=== PATIENT | female | born 1990 | race American Indian/Alaskan Native ===

== ENCOUNTER 2017-07-17 20:41 | Emergency (ER) | payer SELFPAY ==
[2017-07-17 21:47] LABS: Bacteria,Urine 4+ /HPF (Negative); Bilirubin,Urine NEG (Negative); Blood,Urine LG (Negative); Color,Urine Yellow (Yellow); Urobilinogen,Urine < 2.0 mg/dL (<2.0)
[2017-07-17 21:49] LABS: HCG Qualitative,Urine Negative (Negative)
[2017-07-17 21:50] LABS: RBC,Urine > 182.0 /HPF (0.0-6.0)
--- NOTE | 2017-07-17 21:59 | Emergency Department Report ---
HPI - General Chief Complaint: Abdominal Pain Time Seen by Provider: 07/17/17 21:53 - HPI HPI: Patient is a 26-year-old female with no prior medical history who presents to ED complaining of having her period twice this month. Patient states she had her regular period at the beginning of the month and about 4 days ago she started a new menstrual cycle. Patient states bleeding is mild to moderate sometimes having periods. She admits that she gets some intermittent cramps along with the cycle nothing too severe. She denies fever or chills/ nausea or vomiting/headache/fatigue/dizziness as chest pain shortness of breath or any other problems. ED Past Medical Hx - Past Medical History Hx Hypertension: No Hx Heart Attack/AMI: No Hx Congestive Heart Failure: No Hx Diabetes: No Hx Liver Disease: No Hx Renal Disease: No Hx Sickle Cell Disease: No Hx Seizures: No Hx Asthma: Yes (as a child) Hx COPD: No Hx Tuberculosis: No - Surgical History Additional Surgical History: C/S x2 - Social History Smoking Status: Current Every Day Smoker - Medications Home Medications: Home Medications Medication Instructions Recorded Confirmed Last Taken Type HYDROcodone/APAP 5-325 [[place] 1 each PO Q6H PRN #30 tablet 03/01/13 Unknown Rx 5-325 mg TAB] Ibuprofen [Motrin] 800 mg PO Q8HR PRN #30 tablet 07/17/17 Unknown Rx Sulfamethoxazole/Trimethoprim 1 each PO BID #14 tablet 07/17/17 Unknown Rx [Bactrim DS TAB] ED Review of Systems ROS: Stated complaint: LOWER BOTTOM Other details as noted in HPI Constitutional: denies: chills, fever Eyes: denies: eye pain, eye discharge, vision change ENT: denies: ear pain, throat pain Respiratory: denies: cough, shortness of breath, wheezing Cardiovascular: denies: chest pain, palpitations Endocrine: no symptoms reported Gastrointestinal: denies: abdominal pain, nausea, diarrhea Genitourinary: abnormal menses. denies: urgency, dysuria, frequency, hematuria , discharge Musculoskeletal: denies: back pain, joint swelling, arthralgia Skin: denies: rash, lesions Neurological: denies: headache, weakness, paresthesias Psychiatric: denies: anxiety, depression Hematological/Lymphatic: denies: easy bleeding, easy bruising Physical Exam - Physical Exam Vital Signs: Vital Signs 07/17/17 20:47 Temperature 98.6 F Pulse Rate 105 H Respiratory 20 Rate Blood Pressure 156/90 O2 Sat by Pulse 100 Oximetry Physical Exam: GENERAL: Alert and oriented x3, no apparent distress, Normal Gait, atraumatic. HEAD: Head is normocephalic and a-traumatic. LUNGS: Symetrical with respiration, No wheezing, no rales or crackles, CTAB. HEART: S1, S2 present, regular rate and rhythm without murmur, no rubs, no gallops. Non tender to palpation ABDOMEN: No organomegaly was noted,Positive bowel sounds, soft, and non- distended. . Nontender to palpation on all Quadrants, NO CVA tenderness. BACK: Full range of motion, no spinal tenderness, nontender to palpation. NEUROLOGIC: The patient is cooperative with no focal neurologic deficits. SKIN: Warm and dry, small erythematous generalized lesions consistent with insect bites on arms and lower legs, No ulceration or induration present. ED Course Vital Signs 07/17/17 20:47 Temperature 98.6 F Pulse Rate 105 H Respiratory 20 Rate Blood Pressure 156/90 O2 Sat by Pulse 100 Oximetry ED Medical Decision Making - Lab Data Laboratory Last Values Urine Color Yellow (Yellow) 07/17/17 Unknown Urine Turbidity Clear (Clear) 07/17/17 Unknown Urine pH 6.0 (5.0-7.0) 07/17/17 Unknown Ur Specific [place] 1.035 (1.003-1.030) H 07/17/17 Unknown Urine Protein 100 mg/dl mg/dL (Negative) 07/17/17 Unknown Urine Glucose (UA) 50 mg/dL (Negative) 07/17/17 Unknown Urine Ketones 20 mg/dL (Negative) 07/17/17 Unknown Urine Blood Lg (Negative) 07/17/17 Unknown Urine Nitrite Pos (Negative) 07/17/17 Unknown Urine Bilirubin Neg (Negative) 07/17/17 Unknown Urine Urobilinogen < 2.0 mg/dL (<2.0) 07/17/17 Unknown Ur Leukocyte Esterase Neg (Negative) 07/17/17 Unknown Urine WBC (Auto) 123.0 /HPF (0.0-6.0) H 07/17/17 Unknown Urine RBC (Auto) > 182.0 /HPF (0.0-6.0) 07/17/17 Unknown U Epithel Cells (Auto) 15.0 /HPF (0-13.0) H 07/17/17 Unknown Urine Bacteria (Auto) 4+ /HPF (Negative) 07/17/17 Unknown Urine HCG, Qual Negative (Negative) 07/17/17 Unknown - Medical Decision Making 26-year-old female presents with metromenorrhagia ED course: Urinalysis, urine test obtained. Urinalysis positive for bacteria. Urine test negative. I discussed findings with the patient. I discussed the patie current distention as fibroids,cysts can cause intermenstrual bleeding. Patient states that she is not taking any medication. I discussed the patient she will need to see a [facility] specialist for further assessment. She wanted referrals given I discussed the patient to watch for next month in this could be a one-time occurrence and normalized back by next month. Patient is in no acute or respiratory distress she understands all instructions given She has no neuro deficits. She also presents with what looks to be like insect bites or bedbug. I discussed with her to change her sheets wash all sheets and clothing switching to bed. Since she's had this bite corona for about 2 weeks Critical care attestation.: If time is entered above; I have spent that time in minutes in the direct care of this critically ill patient, excluding procedure time. ED Disposition Clinical Impression: DUB (dysfunctional uterine bleeding), Abnormal menstrual periods UTI (urinary tract infection) Qualifiers: Urinary tract infection type: acute cystitis Hematuria presence: with hematuria Qualified Code(s): N30.01 - Acute cystitis with hematuria Disposition: TO HOME OR SELFCARE Is pt being admited?: No Does the pt Need Aspirin: No Condition: Stable Instructions: Dysfunctional Uterine Bleeding (ED), Uterine Fibroids (ED), Urinary Tract Infection in Women (ED), Abdominal Pain (ED), Menorrhagia (ED) Additional Instructions: Make sure to follow up with the primary care physician as discussed. Take all your medications as you've been prescribed. Follow-up with [facility] as referred. If you have any worsening symptoms or develop new symptoms please return to ED immediately. Prescriptions: Ibuprofen [Motrin] 800 mg PO Q8HR PRN #30 tablet PRN Reason: Pain Sulfamethoxazole/Trimethoprim [Bactrim DS TAB] 1 each PO BID #14 tablet Referrals: ALLA PRYOR MD [Primary Care Provider] - 3-5 Days REY PANTOJA MD [Referring] - 3-5 Days BARBARA GARCIA MD [Staff Physician] - 3-5 Days CECY GARCIA MD [Referring] - 3-5 Days POOJA GARCIA MD [Referring] - 3-5 Days Forms: Accompanied Note, Work/School Release Form(ED) Time of Disposition: 22:15
[2017-07-17 22:34] VITALS: BP 120/79
== END 2017-07-17 22:37 | disposition home or self-care (01) ==
LOC: ED 20:41
DX: N92.6 Irregular menstruation, unspecified (principal); N93.8 Other specified abnormal uterine and vaginal bleeding; N30.01 Acute cystitis with hematuria; J45.909 Unspecified asthma, uncomplicated; F17.200 Nicotine dependence, unspecified, uncomplicated
CPT/HCPCS: 81001; 81025; 99283